=== PATIENT | male | born 1985 | race Caucasian/White ===

== ENCOUNTER 2017-03-13 00:08 | Emergency (ER) | payer OTHER ==
[2017-03-13 00:13] VITALS: RESP 18
--- NOTE | 2017-03-13 00:21 | CPEKG ---
Heart Rate: 161 RR Interval: 373 QRSD Interval: 90 QT Interval: 300 QTC Interval: 491 QRS Fenton: 91 T Wave Fenton: -19 EKG Severity - ABNORMAL ECG - EKG Impression: ATRIAL FIBRILLATION EKG Impression: BORDERLINE RIGHT AXIS DEVIATION EKG Impression: BORDERLINE T ABNORMALITIES, INFERIOR LEADS EKG Impression: PROLONGED QT INTERVAL Electronically Signed By: Tiburcio White 13-Mar-2017 05:25:48
[2017-03-13] MEDS ORDERED: ENOXAPARIN 100 MG/ML SYR SC ONE (00:40)
[2017-03-13] MEDS ORDERED: NS 1,000 ML IV ONE (00:48)
[2017-03-13 00:54] LABS: % IMMATURE GRANULYOCYTES 0.3 % (0.0-1.1); ABSOLUTE IMMATURE GRANULOCYTES 0.02 10^3/uL (0.00-0.10); ADD DIFF? NO; ADD MORPH? NO; ADD SCAN? NO; ALANINE AMINOTRANSFERASE 54 IU/L (21-72); ALBUMIN 4.7 g/dL (3.5-5.0); ALKALINE PHOSPHATASE 78 IU/L (38-126); ANION GAP 15 mEq/L (8-16); ASPARTATE AMINOTRANSFERASE 29 IU/L (17-59); ATYPICAL LYMPHOCYTE FLAG 20 (0-99); CALCIUM 10.5 mg/dL (8.5-10.4); CARBON DIOXIDE 24 mEq/l (22-31); CHLORIDE 101 mEq/L (97-110); CREATININE 1.2 mg/dL (0.7-1.3); FRAGMENT RBC FLAG 0 (0-99); GLOMERULAR FILTRATION RATE > 60; GLUCOSE 96 mg/dL (70-100); HEMATOCRIT 48.5 % (40.0-51.0); HEMOGLOBIN 17.7 g/dL (13.7-17.5); LEFT SHIFT FLG 0 (0-99); LIPEMIA HEMOLYSIS FLAG 90 (0-99); MEAN CELL HEMOGLOBIN 31.8 pg (27.9-34.1); MEAN CELL HEMOGLOBIN CONCENTR. 36.5 g/dL (32.4-36.7); MEAN CELL VOLUME 87.2 fL (81.5-99.8); MEAN PLATELET VOLUME 10.1 fL (8.7-11.7); PLATELET CLUMPS FLAG 0 (0-99); PLATELET COUNT 326 10^3/uL (150-400); POTASSIUM 3.6 mEq/L (3.5-5.2); RED BLOOD CELL COUNT 5.56 10^6/uL (4.40-6.38); RED CELL DISTRIBUTION WIDTH 11.7 % (11.5-15.2); SODIUM 140 mEq/L (134-144); TOTAL PROTEIN 7.9 g/dL (6.3-8.2)
--- NOTE | 2017-03-13 01:32 | EDPHY ---
H & P Stated Complaint: palpitations. chest tightness x 30 mins Time Seen by Provider: 03/13/17 00:25 HPI/ROS: Chief Complaint: Palpitations HPI: 31-year-old male with no significant medical history was lying in bed reading at 11:30 a.m. this evening when he had the onset quite abruptly of heart palpitations, tightness in his chest and rapid heart rate. Patient does not have a history of the same. Patient states that he has otherwise been in his normal state of health. He went for a long walk earlier this morning without any difficulties. No fevers or chills. No cough. No nausea or vomiting. He does not smoke, he drinks occasional alcohol, last was 6 days ago , does not use any other recreational drugs. No nausea or vomiting. No abdominal pain. No fevers or chills. No cough. ROS: 10 point Review of Systems is negative except as noted in the HPI. PMH: Denies Medications: None Allergies: None Social History: No smoking, occasional alcohol, no recreational drug use Family History: Father has occasional PVCs Physical Exam: Gen: Awake, Alert, No Distress HEENT: Nose: no rhinorrhea Eyes: PERRLA, EOMI Mouth: Moist mucosa Neck: Supple, no JVD Chest: nontender, lungs clear to auscultation Heart: Irregularly irregular, tachycardic Abd: Soft, non-tender, no guarding Back: no CVA tenderness, no midline tenderness Ext: no edema, non-tender Skin: no rash Neuro: CN II-XII intact, Sensation grossly intact, Strength 5/5 in bilateral upper and lower extremities - Personal History Current Tetanus Diphtheria and Acellular Pertussis (TDAP): Yes - Medical/Surgical History Hx Asthma: No Hx Chronic Respiratory Disease: No Hx Diabetes: No Hx Cardiac Disease: No Hx Renal Disease: No Hx Cirrhosis: No Hx Alcoholism: No Hx HIV/AIDS: No Other PMH: none - Social History Smoking Status: Never smoked Constitutional: Initial Vital Signs Temperature (C) 37 C 03/13/17 00:11 Heart Rate 123 H 03/13/17 00:11 Respiratory Rate 18 03/13/17 00:11 Blood Pressure 140/93 H 03/13/17 00:11 O2 Sat (%) 97 03/13/17 00:11 O2 Delivery Mode Room Air O2 (L/minute) 2 Allergies/Adverse Reactions: No Known Allergies Allergy (Unverified 03/13/17 00:11) Home Medications: Medication Instructions Recorded NK [No Known Home Meds] 03/13/17 Medical Decision Making - Diagnostics EKG Interpretation: ECG 1. Time, 12:19 a.m. atrial fibrillation with a rate of 161. ECG 2. Time, 2:20 a.m. sinus rhythm with a rate of 92, will axis, normal intervals, no acute ST or T-wave changes. Impression: Normal ECG Procedures: Procedure: Procedural sedation. A pre-sedation evaluation was completed on the patient at 2:00 a.m.. Patient is an appropriate candidate for procedural sedation. The risks of the sedation were discussed with the patient. A time out was completed. The patient was sedated with propofol, 100 mg. The patient was monitored with continuous pulse oximetry and principal technical writer. There were no complications and no significant hypoxemia. I remained at the bedside for the sedation. The total time I spent in the procedural sedation was 20 minutes. Procedure: Electrical cardioversion. The patient was electrically cardioverted for atrial fibrillation. The patient was on a continuous parking technician, with airway equipment at the bedside. The patient was on continuous pulse oximetry. The cardioversion was attempted with 100 joules biphasic current. The cardioversion was successful. The patient tolerated the procedure well with no complications. The procedure was performed by myself. ED Course/Re-evaluation: 31-year-old male who is very active normally has been in his normal state health with the new onset of rapid atrial fibrillation with RVR. He can't pinpoint the onset at 11:30 a.m. this evening while reading. Does not have a history of the same. Does not have any risk factors. He went for a walk earlier tonight and has felt very normal. Given his symptomatology I feel it is reasonable to identify the onset at 11:30 a.m. tonight. He has no other risk factors. Will give him a shot of subcutaneous Lovenox now. Plan to cardiovert him in 1 hour. Patient remained tachycardic and 140. Borderline blood pressure in the high 80 systolic. Given his borderline blood pressure and the new onset 11 30 tonight we discussed the risks and benefits associated with cardioverting now. He understands that there is no way to 100% rule out possibility of thrombus however he is very confident with the time of onset. We then proceeded with DC electrical cardioversion was sedation which was successful. Patient tolerated the procedure well. Repeat ECG showed sinus rhythm with a normal ECG. Patient was observed in the emergency department had no further rhythm abnormalities. He was discharged with instructions to follow up with Cardiology as an outpatient. - Data Points Laboratory Results: Laboratory Results 03/13/17 00:30 03/13/17 00:30 03/13/17 03/13/17 03/13/17 00:30 00:30 00:30 WBC 7.81 10^3/uL 10^3/uL (3.80-9.50) RBC 5.56 10^6/uL 10^6/uL (4.40-6.38) Hgb 17.7 g/dL H g/dL (13.7-17.5) Hct 48.5 % % (40.0-51.0) MCV 87.2 fL fL (81.5-99.8) MCH 31.8 pg pg (27.9-34.1) MCHC 36.5 g/dL g/dL (32.4-36.7) RDW 11.7 % % (11.5-15.2) Plt Count 326 10^3/uL 10^3/uL (150-400) MPV 10.1 fL fL (8.7-11.7) Neut % (Auto) 45.2 % % (39.3-74.2) Lymph % (Auto) 42.0 % % (15.0-45.0) Hardin % (Auto) 9.6 % % (4.5-13.0) Eos % (Auto) 1.9 % % (0.6-7.6) Baso % (Auto) 1.0 % % (0.3-1.7) Nucleat RBC Rel Count 0.0 % % (0.0-0.2) Absolute Neuts (auto) 3.53 10^3/uL 10^3/uL (1.70-6.50) Absolute Lymphs (auto) 3.28 10^3/uL H 10^3/uL (1.00-3.00) Absolute Monos (auto) 0.75 10^3/uL 10^3/uL (0.30-0.80) Absolute Eos (auto) 0.15 10^3/uL 10^3/uL (0.03-0.40) Absolute Basos (auto) 0.08 10^3/uL 10^3/uL (0.02-0.10) Absolute Nucleated RBC 0.00 10^3/uL 10^3/uL (0-0.01) Immature Gran % 0.3 % % (0.0-1.1) Immature Gran # 0.02 10^3/uL 10^3/uL (0.00-0.10) Sodium 140 mEq/L mEq/L (134-144) Potassium 3.6 mEq/L mEq/L (3.5-5.2) Chloride 101 mEq/L mEq/L (97-110) Carbon Dioxide 24 mEq/l mEq/l (22-31) Anion Gap 15 mEq/L mEq/L (8-16) BUN 15 mg/dL mg/dL (7-23) Creatinine 1.2 mg/dL mg/dL (0.7-1.3) Estimated GFR > 60 Glucose 96 mg/dL mg/dL (70-100) Calcium 10.5 mg/dL H mg/dL (8.5-10.4) Total Bilirubin 2.0 mg/dL H mg/dL (0.1-1.4) AST 29 IU/L IU/L (17-59) ALT 54 IU/L IU/L (21-72) Alkaline Phosphatase 78 IU/L IU/L (38-126) Total Protein 7.9 g/dL g/dL (6.3-8.2) Albumin 4.7 g/dL g/dL (3.5-5.0) TSH 0.670 uIU/mL uIU/mL (0.465-4.680) Medications Given: Discontinued Medications Enoxaparin Sodium (Lovenox) 100 mg SC EDNOW ONE Stop: 03/13/17 00:41 Last Admin: 03/13/17 00:50 Dose: 100 mg Sodium Chloride (Ns) 1,000 mls @ 0 mls/hr IV EDNOW ONE; Wide Open PRN Reason: Protocol Stop: 03/13/17 00:49 Last Admin: 03/13/17 00:50 Dose: 1,000 mls Propofol (Diprivan) 100 mg IVP EDNOW ONE Stop: 03/13/17 02:16 Last Admin: 03/13/17 02:15 Dose: 100 mg Departure - Departure Disposition: Home, Routine, Self-Care Clinical Impression: Atrial fibrillation Condition: Good Instructions: Edilia-fib (Atrial Fibrillation) (ED) Additional Instructions: Follow up with Cardiology in 3-4 days for further evaluation. Return to the emergency department for racing heartbeat, palpitations, chest pain, shortness of breath, or any other concerns. Referrals: Vasyl Elias MD [Medical Doctor] - As per Instructions
[2017-03-13] MEDS ORDERED: PROPOFOL 200 MG/20 ML VIAL ONE (02:05)
[2017-03-13] MEDS ORDERED: PROPOFOL 200 MG/20 ML VIAL IVP ONE (02:15)
--- NOTE | 2017-03-13 02:30 | CPEKG ---
Heart Rate: 92 RR Interval: 652 P-R Interval: 184 QRSD Interval: 98 QT Interval: 348 QTC Interval: 431 P Mission: 18 QRS Mission: 83 T Wave Mission: 10 EKG Severity - NORMAL ECG - EKG Impression: SINUS RHYTHM Electronically Signed By: Tiburcio White 13-Mar-2017 05:25:48
[2017-03-13 03:09] VITALS: BP 103/75; PULSE 89; TEMP 97.9; O2SAT 96
== END 2017-03-13 03:20 | disposition home or self-care (01) ==
DX: I48.91 Unspecified atrial fibrillation (principal); E86.9 Volume depletion, unspecified
CPT/HCPCS: 96374; J1650; J2704